=== PATIENT | female | born 1995 | race Caucasian/White ===

== ENCOUNTER → 2020-07-09 | Outpatient (CLI) | payer BC, MEDICAID ==
--- NOTE | 2020-07-09 13:05 | Diagnostic Imaging Report ---
INDICATION: Size and dates TECHNIQUE: Multiple real-time grayscale images were obtained over the gravid uterus. COMPARISON: None FINDINGS: There is a single living intrauterine in transverse presentation. The biometry correlates with gestational age 22 weeks 4 days. There is normal volume of amniotic fluid. Placenta is anterior. No previa. Anatomical survey is unremarkable. This includes a three-vessel cord and four-chamber heart. Heart rate 147 bpm and regular. Maternal adnexa is unremarkable IMPRESSION: Single living intrauterine with sonographically estimated gestational age of 22 weeks 4 days estimated date confinement 11/08/2020 Anatomical survey is within normal limits apart from suboptimal imaging of the spine due to lie and movement at this time Biometrical measurements are as follows: Biparietal 5.39 cm, age 22 weeks 3 days. Head circumference 19.55 cm, age 21 weeks 6 days. Abdominal circumference 18.44 cm, age 23 weeks 2 days. Femur length 3.86 cm, age 22 weeks 3 days. Sonographic estimate age: 22 weeks 4 days. Sonographic estimated date of delivery: 11/08/2020. Estimated Weight: 530 gm (+/- 77 gm). LMP percentile: 98%. heart rate: 147 beats per minute. number: 1 of 1. IMPRESSION: Dictated by: Dictated on workstation # [id number]
== END ==
LOC: RAD 10:30
PROVIDERS: ATTEND Nurse Practitioner Women's Health
DX: Z34.92 Encounter for supervision of normal pregnancy, unspecified, second trimester (principal); Z3A.22 22 weeks gestation of pregnancy
CPT/HCPCS: 76805

== ENCOUNTER → 2020-08-31 | Outpatient (CLI) | payer BC, MEDICAID ==
--- NOTE | 2020-08-31 13:20 | Diagnostic Imaging Report ---
INDICATION: Incomplete anatomical assessment on prior screening study. TECHNIQUE: Multiple Real-time grayscale images were obtained over the gravid uterus. COMPARISON: 07/09/2020. FINDINGS: Limited obstetrical sonographic imaging demonstrates the fetus to be currently in cephalic presentation. The cervical length is at 5 cm. The placenta is anterior without previa. There is presence of borderline polyhydramnios, index at 21.42 cm. Followup assessment demonstrates visualization of the spine with the visualized segments appearing unremarkable. Maternal adnexa not visualized. Biometrical growth parameters were not performed. heart rate: 140 beats per minute. number: 1 of 1. IMPRESSION: 1. Single viable intrauterine currently in a cephalic presentation. 2. Followup assessment demonstrates the visualized portions of the spine to be unremarkable. 3. There is presence of borderline polyhydramnios. Dictated by: Dictated on workstation # [id number]
== END ==
LOC: RAD 12:00
PROVIDERS: ATTEND Obstetrics & Gynecology
DX: Z34.00 Encounter for supervision of normal first pregnancy, unspecified trimester (principal); Z3A.00 Weeks of gestation of pregnancy not specified
CPT/HCPCS: 76816

== ENCOUNTER → 2020-09-28 | Outpatient (CLI) | payer BC, MEDICAID ==
--- NOTE | 2020-09-30 13:00 | Diagnostic Imaging Report ---
INDICATION: Growth and biophysical profile. TECHNIQUE: Multiple real-time grayscale images were obtained over the gravid uterus. COMPARISON: 08/31/2020 and 07/09/2020. FINDINGS: The previous OB ultrasound exam of 08/31/2020 noted a single live fetus approximately 20 weeks 2 days gestation. There were no abnormalities identified but the amniotic fluid index was 21.42 (normal 22 cm). On this study, the fetus is again visualized. The fetus is in cephalic presentation. heart motion was noted and a rate of 155 BPM was recorded. There were no otherwise identified, although complete survey was not performed. The biophysical profile score is 8/8 and within normal limits. The placenta is anterior and there is no previa. The amniotic fluid index has decreased since the prior exam and is now 17.8. The growth parameters are fairly uniform. By the first ultrasound exam, the estimated weight is in the 42nd percentile.. According to the patient's LMP however, the estimated weight is in the 98th percentile. Clinical follow-up is recommended. Biometrical measurements are as follows: Biparietal 8.69 cm, age 35 weeks 1 days. Head circumference 32.31 cm, age 36 weeks 4 days. Abdominal circumference 31.71 cm, age 35 weeks 5 days. Femur length 6.59 cm, age 34 weeks 0 days. Sonographic estimate age: 35 weeks 3 days. Sonographic estimated date of delivery: 10/30/2020. Estimated Weight: 2624 gm (+/- 383 gm). LMP percentile: 98%. heart rate: 155 beats per minute. number: 1 of 1. IMPRESSION: 1. There is a single live fetus in cephalic presentation approximately 35 weeks 3 days gestation +/- 2 weeks. The EDC remains October 30, 2020. 2. There were no abnormalities identified, although complete survey was not performed. The biophysical profile score is 8/8 and within normal limits. 3. According to the first ultrasound exam, the growth parameters have progressed as expected. The estimated weight is in the 42nd percentile. Dictated by: Dictated on workstation # [id number]
== END ==
LOC: RAD 10:00
PROVIDERS: ATTEND Nurse Practitioner Women's Health
DX: Z34.93 Encounter for supervision of normal pregnancy, unspecified, third trimester (principal); Z3A.35 35 weeks gestation of pregnancy
CPT/HCPCS: 76805; 76819

== ENCOUNTER 2020-10-10 23:42 | Outpatient (CLI) | payer BC, MEDICAID ==
[~2020-10-10] VITALS: Ht 167 cm; Wt 121.7 kg
--- NOTE | 2020-10-10 23:50 | NUR ---
CRESENCIO WORTHINGTON presented to unit via ambulatory from ED, accompanied by s/o, with c/o BACK PAIN;HIGH BP;NAUSEA 34 0/7. CRESENCIO WORTHINGTON weighed, gowned, voided, and to bed. EFHM and TOCO applied, VS taken. CRESENCIO WORTHINGTON oriented to bed controls, call light, TV, heat, and A/C controls.
[2020-10-11 00:18] LABS: BILIRUBIN,URINE NEGATIVE (NEGATIVE); CLARITY,URINE SL CLOUDY; COLOR,URINE YELLOW; GLUCOSE, URINE (UA) NEGATIVE (NEGATIVE); KETONES,URINE NEGATIVE (NEGATIVE); LEUKOCYTE ESTERASE ,URINE NEGATIVE (NEGATIVE); NITRITE,URINE NEGATIVE (NEGATIVE); PROTEIN,URINE NEGATIVE (NEGATIVE)
[2020-10-11 00:27] LABS: BACTERIA,URINE NEGATIVE /HPF; SQUAMOUS EPITHELIAL CELL,UR 0-2 /HPF
[2020-10-11 00:41] VITALS: BP 120/65
--- NOTE | 2020-10-11 00:41 | NUR ---
Discharge instructions discussed with patient. No questions asked at time. Signature sheet signed, placed on chart. Pt ambulating off unit to private vehicle at time with s.o. at side. No signs of distress noted.
--- NOTE | 2020-10-11 08:10 | Physician Query-Final Dx ---
KYLER ALVAREZ 10/11/20 0810: Clinic Account Progress/Dx Physician Query: Please give diagnosis Please include # weeks gestation Date of Service Oct 10, 2020 at 23:42 CARLOS ACUNA MD 10/11/20 0818: Clinic Account Progress/Dx DIAGNOSIS: Diagnosis False labor at 34 weeks gestation KYLER ALVAREZ Oct 11, 2020 08:10 CARLOS ACUNA MD Oct 11, 2020 08:18
== END 2020-10-11 00:41 | disposition home or self-care (01) ==
LOC: WSo 23:42 → LDRP 23:46 → WSo 10-11 00:41
PROVIDERS: ATTEND Obstetrics & Gynecology
DX: O47.00 False labor before 37 completed weeks of gestation, unspecified trimester (principal); Z3A.34 34 weeks gestation of pregnancy
CPT/HCPCS: 81000; 87088; G0463; 99212

== ENCOUNTER 2020-10-30 02:33 | Outpatient (CLI) | payer BC, MEDICAID ==
[~2020-10-30] VITALS: Ht 167.7 cm; Wt 123.8 kg
--- NOTE | 2020-10-30 02:35 | NUR ---
CRESENCIO WORTHINGTON presented to unit via from ED, accompanied by , with c/o CONTRACTIONS. CRESENCIO WORTHINGTON weighed, gowned, voided, and to bed. EFHM and TOCO applied, VS taken. CRESENCIO WORTHINGTON oriented to bed controls, call light, TV, heat, and A/C controls.
[2020-10-30 02:50] VITALS: BP 117/66
[2020-10-30 03:05] LABS: BILIRUBIN,URINE NEGATIVE (NEGATIVE); CLARITY,URINE CLEAR; COLOR,URINE YELLOW; GLUCOSE, URINE (UA) NEGATIVE (NEGATIVE); KETONES,URINE NEGATIVE (NEGATIVE); LEUKOCYTE ESTERASE ,URINE NEGATIVE (NEGATIVE); NITRITE,URINE NEGATIVE (NEGATIVE); PROTEIN,URINE NEGATIVE (NEGATIVE)
[2020-10-30 03:17] LABS: RBC,URINE RARE /HPF
[2020-10-30 03:18] LABS: BACTERIA,URINE NEGATIVE /HPF
[2020-10-30] MEDS ORDERED: NS IV 1000 ML 1,000 ML IV SCH (03:30)
[2020-10-30 03:45] VITALS: BP 117/66
[2020-10-30 05:50] VITALS: BP 100/66
--- NOTE | 2020-10-30 05:55 | NUR ---
ORDER RECEIVED TO D/C TO HOME. DISCHARGE INSTRUCTIONS REVIEWED, PT VERBALIZES UNDERSTANDING AND SIGNATURE OBTAINED. PT REFUSES W/C FOR D/C. PT AND AMB OFF UNIT. PT TO HOME IN STABLE CONDITION.
--- NOTE | 2020-11-01 11:23 | Physician Query-Final Dx ---
KYLER ALVAREZ 11/01/20 1123: Clinic Account Progress/Dx Physician Query: Please give diagnosis Please include # weeks gestation Date of Service Oct 30, 2020 at 02:33 EDDY ALFONSO DO 11/02/20 1032: Clinic Account Progress/Dx DIAGNOSIS: Diagnosis 37 week IUP Irregular contractions KYLER ALVAREZ Nov 01, 2020 11:23 EDDY ALFONSO DO Nov 02, 2020 10:32
== END 2020-10-30 05:55 | disposition home or self-care (01) ==
LOC: WSo 02:33 → LDRP 02:35 → WSo 05:55
PROVIDERS: ATTEND Obstetrics & Gynecology
DX: O62.4 Hypertonic, incoordinate, and prolonged uterine contractions (principal); Z3A.00 Weeks of gestation of pregnancy not specified
CPT/HCPCS: 81000; 96360; G0463; 99213

== ENCOUNTER 2020-11-15 16:24 | Inpatient (IN) | payer MEDICAID ==
[~2020-11-15] VITALS: Ht 167.7 cm; Wt 124.5 kg
[2020-11-15] VITALS (16 sets, daily range): BP systolic 81–138; BP diastolic 51–85
--- NOTE | 2020-11-15 16:30 | NUR ---
CRESENCIO WORTHINGTON presented to unit via AMBULATION from ED, accompanied by S/O, with c/o WATER BROKE/CONTRACTIONS. CRESENCIO WORTHINGTON weighed, gowned, voided, and to bed. EFHM and TOCO applied, VS taken. CRESENCIO WORTHINGTON oriented to bed controls, call light, TV, heat, and A/C controls.
--- NOTE | 2020-11-15 16:53 | History & Physical-OB ---
OB - Chief Complaint & HPI Date/Time Date of Admission: Date of Admission: 11/15/20 Date seen by a Provider: Nov 15, 2020 Time Seen by a Provider: 16:50 Chief Complaint/History OB-Reason for Admission/Chief: Rupture of Membranes Hx : 3 Hx Para: 2 Gestational Age in Weeks: 39 Gestational Age in Days: 1 Admission Nurse Assessment Rev: Yes History of Labs O+ VDRL NR HBsAg - HIV - GBS - Allergies and Home Medications Allergies Coded Allergies: iodine (Verified Allergy, Mild, Hives, 10/11/20) Home Medications Acetaminophen 500 Mg Tablet, 1,000 MG PO Q8HR Prescribed by: CHANTELLE DAVIS on 11/17/20 1110 Ferrous Sulfate 325 Mg Tablet, 325 MG PO DAILY Prescribed by: CHANTELLE DAVIS on 11/17/20 1110 Ibuprofen 600 Mg Tablet, 600 MG PO Q6HR Prescribed by: CHANTELLE DAVIS on 11/17/20 1110 Patient Home Medication List Home Medication List Reviewed: Yes OB - History Hx of Present Care: Yes Ultrasounds: Normal mid trimester US Obstetrical Complications: None Medical Complications: None Information Induced Hypertension: No Maternal Gestational Diabetes: No Hemorrhage: No Obstetrical History Hx : 3 Hx Para: 2 Hx # Term Pregnancies: 2 Hx Termination: No Hx Multiple Gestation: No Hx Ectopic : No Hx Stillbirth: No Hx Complication: No Hx Induced Hypertens: No Hx Maternal Gestational Diabet: No Hx Hemorrhage: No Patient Past Medical History NC Social History/Family History Alcohol Use: Denies Use Recreational Drug Use: No 2nd Hand Smoke Exposure: Yes Immunizations Hepatitis A: No Hepatitis B: Yes Tetanus Booster (TDap): Less than 5yrs Date of Pneumonia Vaccine: Oct 22, 2017 Date of Influenza Vaccine: Jul 22, 2020 Rubella: immune RPR/VDRL: Negative GBS Status: Negative HBsAG: Negative OB - Admission Exam Physical Exam HEENT: NCAT Heart: Rhythm Normal Lungs: Clear Abdomen: Gravid Extremities: Normal Reflexes: Normal Heart Rate: 130's Accelerations: Accelerations Present Decelerations: No Decelerations Short Term Variability: Present Care Home Variability: Average (6-25) Contractions on Admission: 6-10 Minutes Apart OB - Assessment/Plan/Diagnosis Assessment Assessment: rupture of membranes Admission Dx spontaneous rupture of membranes 39 weeks Admission Status: Inpatient Order (span 2 midnights) Reason for Inpatient Admission: labor Plan Plan: Expectant Management (anticipate ) CHANTELLE DAVIS DO Nov 15, 2020 16:53
[2020-11-15] MEDS ORDERED: LIDOCAINE/EPI 2% 1:200,00 (XYLOCAINE) 10 ML VIAL INJ PRN (17:00)
[2020-11-15] MEDS ORDERED: D5 LR IV SOLUTION 1,000 ML IV ONE (17:04)
[2020-11-15] MEDS: D5 LR IV SOLUTION 1,000 ML IV SCH (17:24)
--- NOTE | 2020-11-15 17:39 | NUR ---
DR DAVIS CALLED, UPDATE GIVEN ABOUT HEART RATE STRIP, NO NEW ORDERS.
[2020-11-15 17:50] LABS: BASOPHILS # (AUTO) 0.1 10^3/uL (0.0-0.1); BASOPHILS % (AUTO) 0 % (0-10); EOSINOPHILS # (AUTO) 0.2 10^3/uL (0.0-0.3); EOSINOPHILS % (AUTO) 1 % (0-10); HEMATOCRIT 37 % (35-52); HEMOGLOBIN 11.7 g/dL (11.5-16.0); LYMPHOCYTES # (AUTO) 3.6 10^3/uL (1.0-4.0); LYMPHOCYTES % (AUTO) 24 % (12-44); MEAN CORPUSCULAR HEMOGLOBIN 27 pg (25-34); MEAN CORPUSCULAR HGB CONC 32 g/dL (32-36); MEAN CORPUSCULAR VOLUME 85 fL (80-99); MEAN PLATELET VOLUME 10.6 fL (9.0-12.2); MONOCYTES % (AUTO) 7 % (0-12); NEUTROPHILS # (AUTO) 9.8 10^3/uL (1.8-7.8); NEUTROPHILS % (AUTO) 67 % (42-75); PLATELET COUNT 254 10^3/uL (130-400); WHITE BLOOD COUNT 14.6 10^3/uL (4.3-11.0)
[2020-11-15 18:04] LABS: BAND NEUTROPHILS 1 %; BASOPHILS % (MANUAL) 0 %; EOSINOPHILS % (MANUAL) 2 %; LYMPHOCYTES % (MANUAL) 24 %; MONOCYTES % (MANUAL) 5 %; NEUTROPHILS % (MANUAL) 68 %
[2020-11-15 18:05] LABS: RBC MORPH NORMAL
[2020-11-15 19:47] LABS: BILIRUBIN,URINE NEGATIVE (NEGATIVE); COLOR,URINE YELLOW; GLUCOSE, URINE (UA) NEGATIVE (NEGATIVE); KETONES,URINE TRACE (NEGATIVE); LEUKOCYTE ESTERASE ,URINE NEGATIVE (NEGATIVE); NITRITE,URINE NEGATIVE (NEGATIVE); PROTEIN,URINE 1+ (NEGATIVE)
--- NOTE | 2020-11-15 19:50 | NUR ---
Dr. Call called with report on patient. Strip and contraction pattern reviewed at this time. No new orders received.
[2020-11-15 19:59] LABS: BACTERIA,URINE FEW /HPF; CLARITY,URINE SL CLOUDY; HYALINE CASTS, URINE 0-2 /LPF; RBC,URINE 0-2 /HPF; SQUAMOUS EPITHELIAL CELL,UR 0-2 /HPF; WBC,URINE 0-2 /HPF
--- NOTE | 2020-11-15 22:30 | NUR ---
2230: Pt. requesting pain medication at this time. Wanting anesthesia to come for epidural. 2223: Anesthesia called with request for epidural.
[2020-11-15] MEDS ORDERED: fentaNYL 2 mcg/ml BUPIVA 0.125 100 ML ONE (22:38)
[2020-11-15] MEDS ORDERED: LACTATED RINGERS 1,000 ML IV SCH ×2 (23:00→23:45)
[2020-11-15] MEDS ORDERED: LIDOCAINE PF 2% 5 ML (XYLOCAINE) VIAL ONE (23:02)
[2020-11-15] MEDS ORDERED: BUPIVACAINE 0.25% 30 ML (SENSORCAINE) VIAL ONE (23:02)
[2020-11-15] MEDS ORDERED: fentaNYL INJECTION 100 MCG/2 ML AMP ONE (23:03)
--- NOTE | 2020-11-15 23:10 | NUR ---
2310: Anesthesia in room. 2313: Pt in sitting position on side of bed. Dad to waiting room. 2323: Local anesthesia placed. 2325: Epidural cath placed. 2327: Test dose / given. No adverse reactions noted. 2328: Epidural pump primed and set up. 2334: Epidural pump started. Pt. states that contractions are already getting better. Pt. laid back.
[2020-11-15] MEDS ORDERED: diphenhydrAMINE 50 MG/ML INJ (BENADRYL) IV PRN (23:45)
[2020-11-15] MEDS ORDERED: ONDANSETRON 4 MG/2 ML (SDV) Z0FRAN IV PRN (23:45)
[2020-11-15] MEDS ORDERED: EPIDURAL (fentaNYL 2 MCG/ML BUPIVA 0.125%)100 ML BAG EPI PRN (23:45)
[2020-11-15] MEDS ORDERED: NALOXONE 0.4 MG/ML 1 ML (NARCAN) VIAL IV PRN (23:45)
[2020-11-15] MEDS ORDERED: OXYTOCIN PRE-MIX DRIP 500 ML IV ONE (23:55)
[2020-11-16] VITALS (21 sets, daily range): BP systolic 83–128; BP diastolic 45–69
[2020-11-16] MEDS: D5 LR IV SOLUTION 1,000 ML IV SCH
--- NOTE | 2020-11-16 01:32 | NUR ---
Dr. Call called with update on pt strip and SVE. informed that pt pushes well with contractions. states that she head this way.
[2020-11-16] MEDS ORDERED: MINERAL OIL CONCENTRATE 99.9% 15 ML UDC ONE (01:48)
--- NOTE | 2020-11-16 02:04 | NUR ---
0204: Delivery of viable female infant in labor room per Dr. Call. Nuchal times 1 and hand presentation noted. Infant to mom's chest. Dried, warmed, and stimulated. Mouth and nose suctioned per bulb syringe. 0206: Cord clamped and cut by FOB. Infant presents with vigorous cry, HR above 100, pink throughout trunk, and active reflexes. 0207: Clean, warm towel placed around infant. Hat placed on . 0208 : Placenta delivered. 0210: states that pt has small abrasion above urethra, but she will not repair it. Scant bleeding noted. 0215: Fundus massaged. Scant bleeding noted. Fundus at umbilicus. Firm, no clots expressed. 0230: Fundus massaged. Minimal bleeding noted. Fundus at umbilicus. Firm, no clots expressed. 0245: Fundus massaged. Minimal bleeding noted. Fundus at umbilicus. Firm, no clots expressed. 0300: Fundus massaged. Moderate bleeding noted. Fundus at umbilicus. Firm, no clots expressed. 0330: Fundus massaged. Scant bleeding noted. Fundus at umbilicus. Firm, no clots expressed.
[2020-11-16] MEDS ORDERED: OXYTOCIN PRE-MIX DRIP 500 ML IV SCH (02:15)
[2020-11-16] MEDS ORDERED: MEASLES,MUMPS,RUBELLA 1 EA INJ SQ ONE (02:15)
[2020-11-16] MEDS ORDERED: BENZOCAINE/MENTHOL (DERMOPLAST) 60 ML CAN TP PRN (02:15)
[2020-11-16] MEDS ORDERED: WITCH HAZEL(TUCKS) 40 EA JAR TOP PRN (02:15)
[2020-11-16] MEDS ORDERED: TETANUS,DIPTH,PERTUSS P/F (BOOSTRIX) 0.5 ML VIAL IM ONE (02:15)
--- NOTE | 2020-11-16 02:15 | OB Labor & Delivery Record ---
Vag Delivery Note Vag Delivery Note Date of Delivery: 11/16/20 Preoperative Diagnosis: Ale Braden is a 25 /Para 3/2 ,Gestational Age 39 with SROM and spontaneous labor Postoperative Diagnosis: Same Surgeon: CHANTELLE DAVIS Anesthesia: epidural Delivery Type: Findings: Viable female , apgars pending, weight 3146 g Lacerations: Intact placenta with 3 vessel cord. Nuchal cord x 1 delivered through with compound hand presentation, No body cord or shoulder dystocia Estimated Blood Loss: 100 ml Complications: None Condition: Stable Description of Procedure: The patient is a 25 year old female who presented with SROM in labor. She was admitted and informed consent was obtained. Her labor course was remarkable for epidural placement. She progressed to complete dilatation and began to push. She was then set up for delivery. The infant's head was delivered atraumatically in the OA position. The shoulders and remainder of the infant's body were then delivered without difficulty. Upon delivery, the head was held below the level of the perineum and the mouth and nares were bulb suctioned. The cord was doubly clamped and cut and the infant was handed off to the pediatric staff. An intact placenta with 3-vessel cord delivered via Anastacio and there was found to be minimal bleeding.~ Vigorous fundal massage was performed and the fundus was found to be firm. IV oxytocin was given. Examination of the vagina and perineum revealed no laceration. Following the delivery, sponge, instrument and needle counts were correct. Mom and baby were both in stable condition in the labor suite. Vitals - Labs Vital Signs - I&O Vital Signs Date Time Temp Pulse Resp B/P (MAP) Pulse Ox O2 Delivery O2 Flow Rate FiO2 11/15/20 19:30 36.6 65 18 111/57 (75) Room Air 11/15/20 16:40 36.5 93 20 131/79 (96) 94 Room Air 11/15/20 16:30 36.5 93 20 94 Room Air Labs Laboratory Tests 11/15/20 17:43: White Blood Count 14.6H, Red Blood Count 4.29, Hemoglobin 11.7, Hematocrit 37, Mean Corpuscular Volume 85, Mean Corpuscular Hemoglobin 27, Mean Corpuscular Hemoglobin Concent 32, Red Cell Distribution Width 14.5, Platelet Count 254, Mean Platelet Volume 10.6, Immature Granulocyte % (Auto) 1, Neutrophils (%) (Auto) 67, Lymphocytes (%) (Auto) 24, Monocytes (%) (Auto) 7, Eosinophils (%) (Auto) 1, Basophils (%) (Auto) 0, Neutrophils # (Auto) 9.8H, Lymphocytes # (Auto) 3.6, Monocytes # (Auto) 1.0, Eosinophils # (Auto) 0.2, Basophils # (Auto) 0.1, Immature Granulocyte # (Auto) 0.1, Neutrophils % (Manual) 68, Lymphocytes % (Manual) 24, Monocytes % (Manual) 5, Eosinophils % (Manual) 2, Basophils % (Manual) 0, Band Neutrophils 1, Blood Morphology Comment NORMAL 11/15/20 19:30: Urine Color YELLOW, Urine Clarity SL CLOUDY, Urine pH 6.0, Urine Specific [place] 1.025H, Urine Protein 1+H, Urine Glucose (UA) NEGATIVE, Urine Ketones TRACEH, Urine Nitrite NEGATIVE, Urine Bilirubin NEGATIVE, Urine Urobilinogen 0.2, Urine Leukocyte Esterase NEGATIVE, Urine RBC (Auto) TRACE-I, Urine RBC 0-2, Urine WBC 0-2, Urine Squamous Epithelial Cells 0-2, Urine Crystals NONE, Urine Bacteria FEWH, Urine Casts PRESENT, Urine Hyaline Casts 0-2H, Urine Mucus LARGEH , Urine Culture Indicated CULTURE PENDING CHANTELLE DAVIS DO Nov 16, 2020 02:15
--- NOTE | 2020-11-16 03:40 | NUR ---
0340: Epidural cath removed. Tip intact. Pt. up to bathroom with nurse at this time. Pt. able to void. Pad, underwear, and clean gown put on. Pericare provided to pt. No problems noted. Pt. then transferred to wheelchair to be transferred to room.
[2020-11-16] MEDS: IBUPROFEN 600 MG (MOTRIN) TAB PO SCH ×4 (03:53→23:49)
[2020-11-16] MEDS ORDERED: CATHETER FLUSH 10 ML SYR IV SCH (06:00)
--- NOTE | 2020-11-16 06:40 | Anesthesia-Regional Post-Op ---
Regional Patient Condition Mental Status: Alert, Oriented x3 Circulation: Same as Pre-Op Headache: Absent Sensation: Full Recovery Motor Block: Absent Post Op Complications Complications None Follow Up Care/Instructions Patient Instructions None needed. Anesthesia/Patient Condition Patient is doing well, no complaints, stable vital signs, no apparent adverse anesthesia problems. No complications reported per nursing. HENRIQUE SCRUGGS CRNA Nov 16, 2020 06:40
[2020-11-16] MEDS: PRENATAL VITAMIN 1 EA TAB PO SCH (09:37)
[2020-11-16] MEDS: FERROUS SULF 325 MG (IRON) TAB PO SCH (09:37)
[2020-11-16] MEDS: DOCUSATE SODIUM 100 MG (COLACE) CAP PO SCH ×2 (09:38→23:49)
[2020-11-16] MEDS: ACETAMINOPHEN 500 MG TAB (TYLENOL) PO SCH ×3 (09:38→23:49)
--- NOTE | 2020-11-16 10:39 | NUR ---
CM/SS: Visited with RN about current Social Service Consult/notification related to patient support system. It is indicated that there are not current identified needs at this time related to support system. This was likely entered in error.
[2020-11-17] VITALS: BP 116/75
[2020-11-17 05:34] LABS: BASOPHILS # (AUTO) 0.1 10^3/uL (0.0-0.1); BASOPHILS % (AUTO) 1 % (0-10); EOSINOPHILS # (AUTO) 0.2 10^3/uL (0.0-0.3); EOSINOPHILS % (AUTO) 2 % (0-10); HEMATOCRIT 33 % (35-52); HEMOGLOBIN 10.3 g/dL (11.5-16.0); LYMPHOCYTES # (AUTO) 4.7 10^3/uL (1.0-4.0); LYMPHOCYTES % (AUTO) 41 % (12-44); MEAN CORPUSCULAR HEMOGLOBIN 27 pg (25-34); MEAN CORPUSCULAR HGB CONC 32 g/dL (32-36); MEAN CORPUSCULAR VOLUME 86 fL (80-99); MEAN PLATELET VOLUME 10.8 fL (9.0-12.2); MONOCYTES # (AUTO) 1.1 10^3/uL (0.0-1.0); MONOCYTES % (AUTO) 9 % (0-12); NEUTROPHILS # (AUTO) 5.5 10^3/uL (1.8-7.8); NEUTROPHILS % (AUTO) 47 % (42-75); PLATELET COUNT 224 10^3/uL (130-400); WHITE BLOOD COUNT 11.6 10^3/uL (4.3-11.0)
[2020-11-17] MEDS: IBUPROFEN 600 MG (MOTRIN) TAB PO SCH (06:28)
[2020-11-17 06:30] VITALS: BP 128/65
[2020-11-17 09:04] VITALS: BP 127/74
[2020-11-17] MEDS: PRENATAL VITAMIN 1 EA TAB PO SCH (09:06)
[2020-11-17] MEDS: DOCUSATE SODIUM 100 MG (COLACE) CAP PO SCH (09:06)
[2020-11-17] MEDS: FERROUS SULF 325 MG (IRON) TAB PO SCH (09:07)
[2020-11-17] MEDS: ACETAMINOPHEN 500 MG TAB (TYLENOL) PO SCH (09:09)
--- NOTE | 2020-11-17 11:07 | Postpartum Progress Note ---
Note Note Day # 1 s/p Subjective: Patient is without complaints. Ambulating, voiding. Tolerating a regular diet without nausea or vomiting. Normal lochia. Pain is well controlled with oral pain medications. breast feeding. Objective: 11/17/20 11/17/20 11/17/20 00:00 06:30 09:04 Temp 36.0 36.2 36.2 Pulse 67 63 65 Resp 18 18 18 B/P (MAP) 116/75 (89) 128/65 (86) 127/74 (91) Pulse Ox 95 97 98 O2 Delivery Room Air Laboratory Tests Test 11/17/20 05:21 Range/Units White Blood Count 11.6 H 4.3-11.0 10^3/uL Red Blood Count 3.80 3.80-5.11 10^6/uL Hemoglobin 10.3 L 11.5-16.0 g/dL Hematocrit 33 L 35-52 % Mean Corpuscular Volume 86 80-99 fL Mean Corpuscular Hemoglobin 27 25-34 pg Mean Corpuscular Hemoglobin Concent 32 32-36 g/dL Red Cell Distribution Width 14.6 H 10.0-14.5 % Platelet Count 224 130-400 10^3/uL Mean Platelet Volume 10.8 9.0-12.2 fL Immature Granulocyte % (Auto) 0 % Neutrophils (%) (Auto) 47 42-75 % Lymphocytes (%) (Auto) 41 12-44 % Monocytes (%) (Auto) 9 0-12 % Eosinophils (%) (Auto) 2 0-10 % Basophils (%) (Auto) 1 0-10 % Neutrophils # (Auto) 5.5 1.8-7.8 10^3/uL Lymphocytes # (Auto) 4.7 H 1.0-4.0 10^3/uL Monocytes # (Auto) 1.1 H 0.0-1.0 10^3/uL Eosinophils # (Auto) 0.2 0.0-0.3 10^3/uL Basophils # (Auto) 0.1 0.0-0.1 10^3/uL Immature Granulocyte # (Auto) 0.0 0.0-0.1 10^3/uL Physical Exam: General - Alert and oriented, no apparent distress Abdomen - Soft, appropriately tender to palpation, non-distended, fundus firm at umbilicus Extremities - no edema, negative Vaishali's bilaterally Assessment: 1. post- day # 1, status post vaginal delivery. Recovering well, hemodynamically stable Plan: Routine care. Encourage breast feeding. Encourage ambulation. Ferrous sulfate supplementation. Plan for discharge today Vitals - Labs Vital Signs - I&O Vital Signs Date Time Temp Pulse Resp B/P (MAP) Pulse Ox O2 Delivery O2 Flow Rate FiO2 11/17/20 09:04 36.2 65 18 127/74 (91) 98 Room Air 11/17/20 06:30 36.2 63 18 128/65 (86) 97 11/17/20 00:00 36.0 67 18 116/75 (89) 95 11/16/20 19:35 36.0 58 18 115/61 (79) 98 11/16/20 16:32 36.1 58 14 116/53 (74) 98 Room Air 11/16/20 11:30 36.3 59 14 128/60 (82) 98 Room Air Labs Laboratory Tests 11/17/20 05:21: White Blood Count 11.6H, Red Blood Count 3.80, Hemoglobin 10.3L, Hematocrit 33L, Mean Corpuscular Volume 86, Mean Corpuscular Hemoglobin 27, Mean Corpuscular Hemoglobin Concent 32, Red Cell Distribution Width 14.6H, Platelet Count 224, Mean Platelet Volume 10.8, Immature Granulocyte % (Auto) 0, Neutrophils (%) (Auto) 47, Lymphocytes (%) (Auto) 41, Monocytes (%) (Auto) 9, Eosinophils (%) (Auto) 2, Basophils (%) (Auto) 1, Neutrophils # (Auto) 5.5, Lymphocytes # (Auto) 4.7H, Monocytes # (Auto) 1.1H, Eosinophils # (Auto) 0.2, Basophils # (Auto) 0.1, Immature Granulocyte # (Auto) 0.0 Microbiology 11/15/20 Urine Culture - Final, Complete >=3 Gram Positive Isolates See Comments CHANTELLE DAVIS DO Nov 17, 2020 11:07
--- NOTE | 2020-11-17 11:08 | Discharge Inst-Women's Service ---
Discharge Inst-Women's Serv Depart Medication/Instructions New, Converted or Re-Newed RX: Transmitted to Pharmacy Final Diagnosis vaginal delivery Problems Reviewed?: Yes Consults/Follow Up Additional Follow Up: Yes (6 week pp exam) Activity Activity: Activity as Tolerated Driving Instructions: You May Drive NO SMOKING: NO SMOKING Nothing Inside Vagina: No Douching, No [place], No Tampons Diet Discharge Diet: No Restrictions Symptoms to Report to : Swelling Increased, Bleeding Excessive, Pain Increased, Fever Over 101 Degrees F, Vaginal Bleeding Increase, Cramps in Feet or Legs, Vaginal Discharge Foul For Any Problems or Questions: Contact Your Physician CHANTELLE DAVIS DO Nov 17, 2020 11:08
[2020-11-17] MEDS ORDERED: IBUP-844 PO (11:10)
[2020-11-17] MEDS ORDERED: ACET-93 PO (11:10)
[2020-11-17] MEDS ORDERED: FERR325T18 PO (11:10)
--- NOTE | 2020-11-17 11:25 | NUR ---
Discharge instructions explained, signed and copy to pt. pt verbalized understanding of instructions and denied questions.
[2020-11-17 11:40] VITALS: BP 127/74
--- NOTE | 2020-11-17 11:40 | NUR ---
Discharged to home. Downstairs in wheelchair and to private vehicle with belongings in hand.
== END 2020-11-17 11:40 | disposition home or self-care (01) | DRG 807 ==
LOC: LDRP 16:24 → WSo 16:24 → LDRP 16:49
PROVIDERS: ADMIT Obstetrics & Gynecology; ATTEND Obstetrics & Gynecology
PROC: 10E0XZZ Delivery of Products of Conception, External Approach (ICD-10-PCS; principal; 2020-11-16)
DX: O32.6XX0 Maternal care for compound presentation, not applicable or unspecified (principal); Z37.0 Single live birth; O69.81X0 Labor and delivery complicated by cord around neck, without compression, not applicable or unspecified; Z3A.39 39 weeks gestation of pregnancy; Z88.8 Allergy status to other drugs, medicaments and biological substances
CPT/HCPCS: 36415; 81000; 85007; 85025; 85027; 86850; 86900; 86901; 87088; 99212

== ENCOUNTER → 2020-11-15 | Outpatient (CLI) | payer MEDICAID ==
[~2020-11-15] MED LIST: ACET-93 PO; FERR325T18 PO; IBUP-844 PO
== END ==
LOC: CANPRECLI → LABNPT 06:51
PROVIDERS: ATTEND Obstetrics & Gynecology
DX: Z36.85 Encounter for antenatal screening for Streptococcus B (principal); Z53.9 Procedure and treatment not carried out, unspecified reason

== ENCOUNTER → 2021-12-26 | Outpatient (CLI) | payer MEDICAID ==
--- NOTE | 2021-12-26 12:28 | Diagnostic Imaging Report ---
INDICATION: Preop for gastric sleeve surgery. TIME OF EXAM: 11:29 AM. COMPARISON: No prior studies are available for comparison. FINDINGS: The heart size is normal. The pulmonary vascularity is unremarkable. The lungs are clear. No infiltrate, effusion, or pneumothorax is detected. IMPRESSION: No acute cardiopulmonary process is detected. Dictated by: Dictated on workstation # [id number]
== END ==
LOC: CARD 11:11
DX: Z01.818 Encounter for other preprocedural examination (principal)
CPT/HCPCS: 71046; 93005

== ENCOUNTER → 2022-01-13 | Outpatient (CLI) | payer MEDICAID | LOC: CARD 13:00 | PROVIDERS: ATTEND Internal Medicine Cardiovascular Disease | DX: I37.1 Nonrheumatic pulmonary valve insufficiency (principal); I07.1 Rheumatic tricuspid insufficiency | CPT/HCPCS: 36415; 84443; 93306 ==

== ENCOUNTER → 2022-01-23 | Outpatient (CLI) | payer MEDICAID | LOC: LAB 16:30 | PROVIDERS: ATTEND Surgery | DX: Z01.818 Encounter for other preprocedural examination (principal); Z72.0 Tobacco use | CPT/HCPCS: 36415; 80323 ==

== ENCOUNTER → 2023-05-09 | Outpatient (CLI) | payer BC, MEDICAID | LOC: CARD 09:00 | PROVIDERS: ATTEND Nurse Practitioner Family | DX: I08.1 Rheumatic disorders of both mitral and tricuspid valves (principal); I27.20 Pulmonary hypertension, unspecified | CPT/HCPCS: 93306 ==

== ENCOUNTER → 2023-05-29 | Outpatient (CLI) | payer BC ==
[2023-05-29 10:11] VITALS: BP 127/68
== END ==
LOC: CARD 09:50
PROVIDERS: ATTEND Nurse Practitioner Family
DX: R07.89 Other chest pain (principal)